=== PATIENT | male | born 1960 | race Caucasian/White ===

== ENCOUNTER → 2023-10-04 | Outpatient (CLI) | payer MEDICARE ==
[2023-10-04 13:34] LABS: BASOPHILS # (AUTO) 0.04 K/uL (0.00-0.20); BASOPHILS % (AUTO) 0.6 % (0.0-5.0); EOSINOPHILS # (AUTO) 0.11 K/uL (0.00-0.70); EOSINOPHILS % (AUTO) 1.8 % (0.0-8.0); LYMPHOCYTES # (AUTO) 1.6 K/uL (1.0-4.8); MEAN CORPUSCULAR HEMOGLOBIN 30.8 pg (27.0-33.0); MEAN CORPUSCULAR HGB CONC 34.3 g/dL (32.0-36.0); MEAN CORPUSCULAR VOLUME 89.7 fL (79-99); MONOCYTES # (AUTO) 0.4 K/uL (0.1-1.0); MONOCYTES % (AUTO) 6.3 % (3.0-13.0); NEUTROPHILS # (AUTO) 3.9 K/uL (1.8-7.7); NEUTROPHILS % (AUTO) 63.7 % (40.0-77.0); PLATELET COUNT (AUTO) 230 K/uL (130-400); RED BLOOD CELL COUNT(AUTO) 4.68 MIL/uL (4.50-6.20); RED CELL DISTRIBUTION WIDTH 12.2 % (11.0-15.5); WHITE BLOOD COUNT (AUTO) 6.2 K/uL (4.8-10.8)
[2023-10-04 13:46] LABS: ALBUMIN 3.7 g/dL (3.5-5.0); BILIRUBIN,TOTAL 0.5 mg/dL (0.2-1.0); CREATININE 1.2 mg/dL (0.5-1.3); TOTAL PROTEIN, SERUM 7.1 g/dL (6.0-8.3)
[2023-10-04 13:47] LABS: INR <= 0.93 (0.85-1.15); PROTHROMBIN TIME 10.7 SEC (9.6-11.6)
[2023-10-04 13:48] LABS: % IRON SATURATION 26.7 % (30-44); PARTIAL THROMBOPLASTIN TIME 28.7 SEC (26.3-35.5)
[2023-10-04 14:01] LABS: HEMOGLOBIN A1C 5.6 % (4.0-6.0)
== END | disposition home or self-care (01) ==
LOC: RAH 12:51
PROVIDERS: ATTEND Orthopaedic Surgery
DX: Z01.818 Encounter for other preprocedural examination (principal); T84.098A Other mechanical complication of other internal joint prosthesis, initial encounter; M25.462 Effusion, left knee; M25.762 Osteophyte, left knee; M17.12 Unilateral primary osteoarthritis, left knee; Z79.899 Other long term (current) drug therapy; X58.XXXA Exposure to other specified factors, initial encounter; Z96.652 Presence of left artificial knee joint
CPT/HCPCS: 36415; 71045; 73700; 80053; 82306; 83036; 83540; 83550; 84466; 85025; 85610; 85730

== ENCOUNTER → 2024-12-11 | Outpatient (CLI) | payer MEDICARE ==
--- NOTE | 2024-12-12 13:10 | HMCIMG ---
CT CERVICAL SPINE W/O CONTRAST REASON: Radiculopathy, cervical region COMPARISON: None TECHNIQUE: Images are obtained from skull base to the upper thoracic spine in the axial plane. Sagittal and coronal reconstruction images were then performed. FINDINGS: There is been previous anterior body fusion C5-6 and C6-7. Hardware appears intact. There is moderate interspace narrowing at C3-4. Remaining interspaces appear preserved. Spinal canal appears preserved. There is no evidence of focal spinal stenosis. There is 3 mm anterior subluxation of C6 on C7. Alignment is otherwise normal. There are degenerative changes in the facets which are mild in degree. IMPRESSION: 1. Postoperative and degenerative changes as described. CT was performed with one or more following dose reduction techniques: automated exposure control, adjustment of the mA and kv according to patient's size, or use of a iterative reconstruction technique.
== END | disposition home or self-care (01) ==
LOC: RAH 14:14
PROVIDERS: ATTEND Family Medicine
DX: S13.170A Subluxation of C6/C7 cervical vertebrae, initial encounter (principal); M47.22 Other spondylosis with radiculopathy, cervical region; M48.02 Spinal stenosis, cervical region; Z98.890 Other specified postprocedural states; X58.XXXA Exposure to other specified factors, initial encounter; Y93.89 Activity, other specified; Y92.89 Other specified places as the place of occurrence of the external cause; Y99.8 Other external cause status
CPT/HCPCS: 72125

== ENCOUNTER → 2025-05-04 | Outpatient (CLI) | payer MEDICARE ==
--- NOTE | 2025-05-04 12:14 | HMCIMG ---
CERVICAL SPINE RADIOGRAPHS - 2-3 VIEWS INDICATION: Pain COMPARISON: None FINDINGS: AP, lateral, and odontoid views. Normal lordosis is maintained. No acute fracture or malalignment identified. Prevertebral soft tissues are not swollen. The atlanto-dens interval is within normal limits for patient's age. Spot view of the odontoid is without evidence for fracture. Vertebral body heights are within normal limits.. Ventral marginal spur suggesting of early osteopenic changes. Disc heights are well preserved. There is anterior cervical disc fusion with orthopedic plates seen at C5-C6 and C7. Visible lung apices are clear. Flexion and extension radiograph demonstrated no evidence of malalignment. Status post median sternotomy IMPRESSION: No acute fracture or subluxation identified. Postsurgical changes with anterior cervical fusion from C5 to C7 Marginal spurs seen in the inferior endplate of C3-4 suggesting of early osteophytic changes.
== END | disposition home or self-care (01) ==
LOC: RAH 11:26
PROVIDERS: ATTEND Neuromusculoskeletal Medicine & OMM
DX: M53.2X2 Spinal instabilities, cervical region (principal); Z98.1 Arthrodesis status
CPT/HCPCS: 72050